=== PATIENT | female | born 1960 | race Caucasian/White ===

== ENCOUNTER 2021-09-27 16:16 | Emergency (ER) | payer OTHER ==
[2021-09-27 16:24] VITALS: BP 160/60; PULSE 60; TEMP 97.5; BMI 40.0
[2021-09-27] MEDS ORDERED: KETOROLAC TROMETHAMINE 30 MG/1 ML VIAL IM ONE (16:54)
[2021-09-27] MEDS ORDERED: KETOROLAC TROMETHAMINE 30 MG/1 ML VIAL ONE (17:02)
== END 2021-09-27 17:32 | disposition home or self-care (01) ==
LOC: JERFT 16:16 → JER 16:16 → JERFT 17:32
PROC: 3E023GC Introduction of Other Therapeutic Substance into Muscle, Percutaneous Approach (ICD-10-PCS; principal; 2021-09-27)
DX: H66.93 Otitis media, unspecified, bilateral (principal)
CPT/HCPCS: 99284-25